=== PATIENT | male | born 1935 | race Caucasian/White ===

== ENCOUNTER 2016-12-15 10:03 | Emergency (ER) | payer MEDICARE, BC ==
[2016-12-15 10:11] LABS: BASOPHIL# 0.1 X 10^3uL (0.0-0.1); BASOPHILS 1.5 % (0.0-2.0); EOSINOPHILS 4.2 % (0.0-6.0); EOSINOPHILS# 0.2 X 10^3uL (0.0-0.4); HEMATOCRIT 43.5 % (42.0-54.0); HEMOGLOBIN 14.8 g/dL (14.0-18.0); LYMPHOCYTES# 1.2 X 10^3uL (0.8-3.8); MEAN CELL VOLUME 83.8 fL (80.0-100.0); MEAN CORPUS. HGB CONCENTRATION 34.1 g/dL (32.0-36.0); MEAN CORPUSCULAR HEMOGLOBIN 28.5 pg (29.0-35.0); MEAN PLATELET VOLUME 7.6 fL (7.4-10.4); MONOCYTES 10.5 % (2.0-10.0); MONOCYTES# 0.4 X 10^3uL (0.2-1.0); NEUTROPHILS 54.8 % (54.0-75.0); NEUTROPHILS# 2.3 X 10^3uL (2.6-6.7); PLATELET COUNT 202 X 10^3uL (130-440); RED BLOOD COUNT 5.19 X 10^6uL (4.20-6.10); RED CELL DISTRIBUTION WIDTH 15.1 % (11.5-14.5); WHITE BLOOD COUNT 4.2 X 10^3uL (3.9-10.7)
[2016-12-15 10:15] LABS: BLOOD UREA NITROGEN 14 mg/dL (9-20); CHLORIDE 104 mmol/L (98-107); CREATININE 1.1 mg/dL (0.7-1.3); GLUCOSE 112 mg/dL (70-100); SODIUM 141 mmol/L (137-145)
[2016-12-15 10:22] LABS: CALCIUM 9.4 mg/dL (8.4-10.2)
--- NOTE | 2016-12-15 10:23 | CT REPORT ---
HISTORY: Left arm and leg weakness with slurred speech and dizziness, evaluate for acute infarction. COMPARISON: None. TECHNIQUE: Axial non-contrast images obtained from skull vertex through foramen magnum. Dose reduction technique was utilized. FINDINGS: There is age appropriate atrophy. There is decreased attenuation in the periventricular white matter , consistent with chronic small vessel ischemic change. There is no hemorrhage. There is no hydroce phalus. No mass lesion is identified. Claros white differentiation adequate, there is no infarction. No midline shift is identified. The paranasal sinuses are clear. IMPRESSION: Age appropriate atrophy and chronic small vessel ischemic change. There is no acute intracranial abno rmality identified. Final Electronic Signature: This report was electronically signed by Jeff Martin MD, FACR on 017 10:20 AM. marika /
[2016-12-15 10:29] LABS: INR 1.2
[2016-12-15] MEDS ORDERED: ALTEPLASE 100 MG/100 ML VIAL IV ONE (10:54)
--- NOTE | 2016-12-15 11:31 | ER NURSING DOCUMENTATION ---
Nurse's Notes [facility] Name:Eamon Delarosa Age:81 yrs Sex:Male :1935 Arrival Date:12/15/2016 Time:10:03 BedTrauma-A Private MD: Diagnosis:Cerebrovascular Accident (CVA) Presentation: 12/15 10:00 Presenting complaint: EMS states: pt had slurred speech, left sided weakness and st dizziness starting at (AM. Transition of care: Home. Time Last Known Well for patient was 9 AM. An acute neurological deficit is present. 10:00 Method Of Arrival: EMS: 420 st 10:00 Care prior to arrival: IV initiated. gauge and site 18G right AC. st 10:06 Acuity: PATTI 1 lpr Triage Assessment: 10:00 The onset of the patients symptoms was less than three hours ago. General: Appears st uncomfortable, Behavior is cooperative. Pain: Denies pain. EENT: No deficits noted. Neuro: Level of Consciousness is alert, pt states he feels tired but he is a wake and alert.. Oriented to person, place, time, event, Army Manager are equal bilaterally Gait is EMS reports that pt had some dizziness and then tipped over into the couch.. Reports Denies blurred vision headache. Cardiovascular: No deficits noted. Respiratory: No deficits noted. GI: No deficits noted. Historical: - Allergies: No known drug Allergies; - Home Meds: 1. Simvastatin Oral 2. timolol maleate oral 3. clofeine - PSHx: SHOULDER SURGERY; - Ebola Screening: : Patient denies exposure to infectious person. Patient denies travel to an Ebola-affected area in the 21 days before illness onset. . Screenin:46 Nutritional screening: No deficits noted. st Assessment: 10:41 General: helicopter called. st 10:54 Reassessment: pt resting quietly.. st 10:55 General: pt is too weak to a walk. . st Vital Signs: 10:00 BP 110 / 90; Pulse 84; st 10:15 BP 123 / 79; Pulse 89; Resp 18; Temp 97.6; Pulse Ox 94% on R/A; Weight 90.72 kg; Pain st 0/10; 10:22 BP 122 / 78 (auto/); st 10:22 Pulse 86 MON; Resp 15; Pulse Ox 95% 3 lpm ; st 10:30 BP 110 / 78 (auto/); st 10:32 Pulse 86 MON; Resp 21; Pulse Ox 97% ; st 10:45 BP 136 / 84 (auto/); st 10:47 Pulse 81 MON; Resp 16; Pulse Ox 97% ; st 11:00 BP 131 / 82 (auto/); st 11:02 Pulse 79 MON; Resp 16; Pulse Ox 97% ; st 11:15 BP 129 / 81 (auto/); st 11:17 Pulse 79 MON; Resp 15; Pulse Ox 97% ; st NIH Stroke Scale Scores: 10:27 NIHSS Score: 2 st ED Course: 10:00 Oxygen Oxygen administration via nasal cannula @ 3L/min. st 10:00 threat monitoring analyst on. Pulse ox on. NIBP on. st 10:04 Patient arrived in ED. ama 10:05 Kwame Bertrand MD is Attending Physician. sc 10:06 Triage completed. lpr 10:09 Nelsy Washington, JONH is Primary Nurse. lp 10:15 EKG done per protocol. Performed by ED Staff. Shown to ED physician. st 10:[address] 10:46 Valuables Remains with patient Patient has correct armband on for positive st identification. Placed in gown. Bed in low position. Call light in reach. Side rails up X2. 10:53 Inserted peripheral IV: 20 gauge in left antecubital area. st 10:54 Other attached lp 10:54 EKG attached lp Administered Medications: 10:48 Drug: tPA BOLUS - Alteplase 8.2 ml; Route: IVP; Site: right antecubital; st 11:30 Follow up: Response: No adverse reaction st 10:50 Drug: tPA DRIP - Alteplase 73.6 ml; Route: IV; Rate: calculated rate; Site: right st antecubital; 11:30 Follow up: IV Status: Infusing continued upon transfer st Point of Care Testing: Blood Glucose: 10:15 Blood Glucose: 123 mg/dL; st Ranges: Outcome: 10:45 ER care complete, transfer ordered by . sc 11:00 Transferred: Patient will be transferred to: [facility]. Facility st Acceptance Time: December 15, 2016 at 10:50 Patient's face sheet was faxed to accepting facility. Face Sheet included patient's name, address, age, gender, contact information and insurance information. 11:05 Condition: stable st 11:05 Report given to Adryan at [facility] ED. 11:05 Instructed on need for transfer 11:31 Patient left the ED. st 11:31 Transferred: Patient will be transported by: Nurse and Physician Charting and Notes st were sent to Accepting Facility. All tests and/or procedures with results, if applicable, were sent to accepting facility. NIH Stroke Scale - NIH Stroke Score Date: 12/15/2016 Time: 10: Total Score = 2 1a. Level of Consciousness (LOC) - 0(Alert) 1b. Level of Consciousness (LOC) (Year & Age) - 0(Both) 1c. LOC Commands (Open & Closes Eyes/[employer] Hr Developer) - 0(Both) 2. Best Gaze (Lateral Gaze Paresis) - 0(Normal) 3. Visual Field Loss - 0(No visual loss) 4. Facial Palsy - 1(Minor Paralysis) 5a. Left Arm: Motor (10-second hold) - 9(Amputation, joint fusion) - Notes: pt has a previous shoulder injuriy prevently rasing onthe left arm 5b. Right Arm: Motor (10-second hold) - 0(No drift) 6a. Left Leg: Motor (5-second hold ? always test supine) - 0(No drift) 6b. Right Leg: Motor (5-second hold ? always test supine) - 0(No drift) 7. Limb Ataxia (finger/nose & heel/hardy ? test with eyes open) - 0(Absent) 8. Sensory Loss (pinprick arms/legs/face) - 0(Normal) 9. Best Language: Aphasia (description/naming/reading) - 0(No aphasia) 10. Dysarthria (speech clarity ? read or repeat words) - 1(Mild to Moderate) 11. Extinction and Inattention (visual/tactile/auditory/spatial/personal) - 0(No abnormality) Initials: st Signatures: Natacha Nunn RN RN st Pavlish, Lena, RN RN lp Chew, Scott, MD MD sc Strickland, Mary ms Roberts, Leslie, RN RN lpr Averdick, Andrew, Reg Reg ama
--- NOTE | 2016-12-15 11:31 | ER PHYSICIAN DOCUMENTATION ---
Physician Documentation [facility] Name:Eamon Delarosa Age:81 yrs Sex:Male :1935 Arrival Date:12/15/2016 Time:10:03 BedTrauma-A Private MD: Kwame Hernandez Disposition: 12/15/16 10:45 Transfer ordered to [facility]. Diagnosis is Cerebrovascular Accident (CVA). - Reason for transfer: Specialty. - Accepting physician is Silver. - Condition is Critical. - Problem is new. - Symptoms are unchanged. COBRA Form completed? Yes Transfer - Mode of Transportation Helicopter HPI: 12/15 10:12 This 81 yrs old Male presents to ER with complaints of S/S of Possible Stroke.sc 10:30 The patient's problem is reported as dysphasia, slurred speech. Onset: The sc symptom(s)/episode began/occurred at 09:00. Duration: This was a single incident, The episode is continuous. Context: the episode(s) was witnessed, by a significant other, occurred at home, occurred while the patient was walking. The symptoms are alleviated by nothing. Associated signs and symptoms: Pertinent positives: left leg weakness by EMS eval that resolved arriving at ED, limited left arm raise due to recent injury. Severity of symptoms: At their worst the symptoms were moderate. Patient's baseline: Neuro: alert and fully oriented, Motor: no deficits. The patient has experienced a previous episode, approximately 20 years ago, many years ago. Historical: - Allergies: No known drug Allergies; - Home Meds: 1. Simvastatin Oral 2. timolol maleate oral 3. clofeine - PSHx: SHOULDER SURGERY; - Ebola Screening: : Patient denies exposure to infectious person. Patient denies travel to an Ebola-affected area in the 21 days before illness onset. . ROS: 10:32 Constitutional: Negative for fever, chills, and weight loss. sc Eyes: Negative for injury, pain, redness, and discharge. ENT: Negative for injury, pain, and discharge. Neck: Negative for injury, pain, and swelling. Cardiovascular: Negative for chest pain, palpitations, and edema. Respiratory: Negative for shortness of breath, cough, wheezing, and pleuritic chest pain. Abdomen/GI: Negative for abdominal pain, nausea, vomiting, diarrhea, and constipation. Back: Negative for injury and pain. MS/Extremity: Negative for injury and deformity. 10:32 Skin: Negative for injury, rash, and discoloration. sc 10:32 Neuro: Positive for gait disturbance, speech changes. Exam: Constitutional: This is a well developed, well nourished patient who is awake, alert, and in no acute distress. Head/Face: Normocephalic, atraumatic. Eyes: Pupils equal round and reactive to light, extra-ocular motions intact. Lids and lashes normal. Conjunctiva and sclera are non-icteric and not injected. Cornea within normal limits. Periorbital areas with no swelling, redness, or edema. ENT: Nares patent. No nasal discharge, no septal abnormalities noted. Tympanic membranes are normal and external auditory canals are clear. Oropharynx with no redness, swelling, or masses, exudates, or evidence of obstruction, uvula midline. Mucous membranes moist. Neck: Trachea midline, no thyromegaly or masses palpated, and no cervical lymphadenopathy. Supple, full range of motion without nuchal rigidity, or vertebral point tenderness. No meningismus. Chest/axilla: Normal chest wall appearance and motion. Nontender with no deformity. No lesions are appreciated. Cardiovascular: Regular rate and rhythm with a normal S1 and S2. No gallops, murmurs, or rubs. Normal PMI, no JVD. No pulse deficits. Respiratory: Lungs have equal breath sounds bilaterally, clear to auscultation and percussion. No rales, rhonchi or wheezes noted. No increased work of breathing, no retractions or nasal flaring. Abdomen/GI: Soft, non-tender, with normal bowel sounds. No distension or tympany. No guarding or rebound. No evidence of tenderness throughout. 10:33 Back: No spinal tenderness. No costovertebral tenderness. Full range of motion. sc 10:33 Neuro: Orientation: is normal, Cranial nerves: facial droop noted on left, decreased strength, subtle. Cerebellar function: is grossly normal, Motor: is normal, Sensation: is normal, Gait: is unsteady, shuffling, Deep tendon reflexes are 3+ (brisk) in the right patellar and left patellar, Babinski testing reveals downgoing, . Vital Signs: 10:00 BP 110 / 90; Pulse 84; st 10:15 BP 123 / 79; Pulse 89; Resp 18; Temp 97.6; Pulse Ox 94% on R/A; Weight 90.72 kg; Pain st 0/10; 10:22 BP 122 / 78 (auto/); st 10:22 Pulse 86 MON; Resp 15; Pulse Ox 95% 3 lpm ; st 10:30 BP 110 / 78 (auto/); st 10:32 Pulse 86 MON; Resp 21; Pulse Ox 97% ; st 10:45 BP 136 / 84 (auto/); st 10:47 Pulse 81 MON; Resp 16; Pulse Ox 97% ; st 11:00 BP 131 / 82 (auto/); st 11:02 Pulse 79 MON; Resp 16; Pulse Ox 97% ; st 11:15 BP 129 / 81 (auto/); st 11:17 Pulse 79 MON; Resp 15; Pulse Ox 97% ; st NIH Stroke Scale Scores: 10:27 NIHSS Score: 2 st MDM: 10:05 Patient medically screened. or 10:41 Differential diagnosis: CVA. Neurological re-evaluation: all normal except: no change, sc speech and gait deficit. Data reviewed: vital signs, nurses notes, lab test result(s), EKG, radiologic studies, and as a result, I will initiate a consult, from a Turkmen Neurologist Dr. Sheppard, rec TPA if gait impaired on testing. Counseling: I had a detailed discussion with the patient and/or guardian regarding: the historical points, exam findings, and any diagnostic results supporting the discharge/admit diagnosis, lab results, radiology results, the need to transfer to another facility, for higher level of care, [facility] does not immediately have the required specialist. ECG:. Medication response: The patient's symptoms are unchanged despite medication administration. Physician consultation: Dr. Sheppard was called at 10:44, was contacted at 10:44, regarding patient's condition. 10:54 Other attached lp 10:54 EKG attached lp 12/15 10:12 Order name: CBC AUTO DIF, MDIF/RMOR IF IND; Complete Time: 11:01 EDMS 12/15 11:01 Interpretation: Normal. or 12/15 10:16 Order name: BASIC METABOLIC PANEL; Complete Time: 11: EDMS 12/15 11:01 Interpretation: Normal. or 12/15 10:33 Order name: PROTIME/INR; Complete Time: 11:01 EDWV 12/15 11:01 Interpretation: Normal. or 12/15 10:23 Order name: CAT SCAN; HEAD W/O CON [id number]; Complete Time: 11: EDWV 12/15 11:01 Interpretation: Normal. or 12/15 10:06 Order name: 12-lead EKG; Complete Time: 10:27 or 12/15 10:06 Order name: Continuous Cardiac Monitoring; Complete Time: 10:27 or 12/15 10:06 Order name: I & O; Complete Time: 10:27 or 12/15 10:06 Order name: IV saline lock X2; Complete Time: 10:53 or 12/15 10:06 Order name: NIH Stroke Scale; Complete Time: 10:27 or 12/15 10:06 Order name: NPO; Complete Time: 10:27 or 12/15 10:06 Order name: Pulse Ox Continuous; Complete Time: 10:27 or 12/15 10:06 Order name: Accucheck; Complete Time: 10:27 or 12/15 10:06 Order name: Elevate HOB 30 degrees; Complete Time: 10: or 12/15 10:52 Order name: tPA: Check with MD 1st < giving; Consent signed?; Complete Time: 10:52 12/15 11:30 Order name: Oxygen; Complete Time: 11:30 st EC:41 Rate is 93 beats/min. Rhythm is regular with Right bundle branch block. QRS Loyall is sc Normal. AR interval is normal. QRS interval is normal. QT interval is normal. No Q waves. T waves are Normal. No ST changes noted. Clinical impression: Abnormal EKG without significant change. Interpreted by me. Reviewed by me. Dispensed Medications: 10:48 Drug: tPA BOLUS - Alteplase 8.2 ml; Route: IVP; Site: right antecubital; st 11:30 Follow up: Response: No adverse reaction st 10:50 Drug: tPA DRIP - Alteplase 73.6 ml; Route: IV; Rate: calculated rate; Site: right antecubital; 11:30 Follow up: IV Status: Infusing continued upon transfer st Point of Care Testing: Blood Glucose: 10:15 Blood Glucose: 123 mg/dL; st Ranges: Critical Glucose Levels:Adult <50 mg/dl or >400 mg/dl <40 mg/dl or >180 mg/dl NIH Stroke Scale - NIH Stroke Score Date: 12/15/2016 Time: :27 Total Score = 2 1a. Level of Consciousness (LOC) - 0(Alert) 1b. Level of Consciousness (LOC) (Year & Age) - 0(Both) 1c. LOC Commands (Open & Closes Eyes/Theatrical Variety Agent) - 0(Both) 2. Best Gaze (Lateral Gaze Paresis) - 0(Normal) 3. Visual Field Loss - 0(No visual loss) 4. Facial Palsy - 1(Minor Paralysis) 5a. Left Arm: Motor (10-second hold) - 9(Amputation, joint fusion) - Notes: pt has a previous shoulder injuriy prevently rasing onthe left arm 5b. Right Arm: Motor (10-second hold) - 0(No drift) 6a. Left Leg: Motor (5-second hold ? always test supine) - 0(No drift) 6b. Right Leg: Motor (5-second hold ? always test supine) - 0(No drift) 7. Limb Ataxia (finger/nose & heel/hardy ? test with eyes open) - 0(Absent) 8. Sensory Loss (pinprick arms/legs/face) - 0(Normal) 9. Best Language: Aphasia (description/naming/reading) - 0(No aphasia) 10. Dysarthria (speech clarity ? read or repeat words) - 1(Mild to Moderate) 11. Extinction and Inattention (visual/tactile/auditory/spatial/personal) - 0(No abnormality) Initials: st Signatures: Natacha Nunn RN RN st Pavlish, Lena, RN RN lp Chew, Scott, MD MD or
== END 2016-12-15 11:31 | disposition short-term general hospital (02) ==
LOC: ER 10:03
DX: I63.50 Cerebral infarction due to unspecified occlusion or stenosis of unspecified cerebral artery (principal); I45.10 Unspecified right bundle-branch block; R29.702 NIHSS score 2; Z79.899 Other long term (current) drug therapy; Z99.81 Dependence on supplemental oxygen; Z74.3 Need for continuous supervision
CPT/HCPCS: 70450; 80048; 85025; 85610; 92977; 93005; 93010; 96365; 96375; 96376; 99285; A0420; A0425; A0427; J2997